=== PATIENT | male | born 1980 | race Caucasian/White ===

== ENCOUNTER 2016-10-09 10:35 | Observation (INO) | payer OTHER ==
[2016-10-09] MEDS ORDERED: NORMAL SALINE 1,000 ML IV PRN ×3 (10:49→15:30)
[2016-10-09] MEDS ORDERED: HYDROmorphone HCL 1 MG/ML DISP.SYRIN IV ONE ×2 (10:49→13:12)
[2016-10-09] MEDS ORDERED: TAMSULOSIN HCL 0.4 MG CAP.SR.24H PO ONE ×2 (10:49→11:17)
--- NOTE | 2016-10-09 10:55 | ERNOTE ---
ER Male HPI Date of Service: 10/09/16 Stated Complaint: KIDNEY STONES Time Seen by Provider: 10/09/16 10:45 Source: patient, family Exam Limitations: no limitations Immunizations: IMMUNIZATION HX Immunizations Up to Date Yes Allergies/Adverse Reactions: Allergies No Known Allergies Allergy (Unverified 10/09/16 10:48) Home Medications: HOME MEDICATIONS NK [No Home Medication] 10/09/16 [Last Taken Unknown] - History of Present Illness Narrative: Was wakened at 0400 today with RLQ pain radiating to right flank and right testicle. Severe. Aching, stabbing. Urgency of urination, but unable to void. No fever. Several years ago passed a kidney stone after an ER visit for same. Last year, passed two stones without visiting a health care provider. Father has kidney stones. Timing: Present: constant Quality: Present: severe, aching, stabbing Onset Location: Present: RLQ Radiation: Present: right flank Activities at Onset: Present: sleep Prior Abdominal Problems: Present: similar symptoms Modifying Factors - (Improves): Present: other - nothing Modifying Factors - (Worsens): Present: other - nothing Associated Symptoms: Absent: fever/chills, diaphoresis, nausea, vomiting Prior Treatment: Absent: currently on antibiotics Review of Systems - Review of Systems Constitutional: Present: no symptoms reported EYE: Present: no symptoms reported ENT: Present: no symptoms reported Respiratory: Present: no symptoms reported Cardiology: Present: no symptoms reported Gastrointestinal/Abdominal: Present: See HPI Genitourinary: Present: See HPI Musculoskeletal: Present: no symptoms reported Skin: Present: no symptoms reported Neurological: Present: no symptoms reported Endocrine: Present: no symptoms reported Hematologic/Lymphatic: Present: no symptoms reported Psych: Present: no symptoms reported All Other Systems: All systems neg except as marked - Patient's Past Medical History Patient History - Medical: Kidney stone Patient History - Cardiac/Respiratory: No pertinent hx Patient History - Cancer: No Hx of Cancer Patient History - Surgical Procedures: No surgical history - Social History Smoking Status: Never smoker - Immunizations Immunizations Up to Date: Yes Physical Exam - Physical Exam General Appearance: Present: wd/wn, alert, moderate distress Eye Exam: Normal inspection: bilateral, PERRL: bilateral, EOMI: bilateral Ears, Nose, Throat: Present: normal ENT inspection Neck: Present: normal inspection Respiratory: Present: no respiratory distress, lungs clear Cardiovascular/Chest: Present: regular rate, rhythm, no murmur Gastrointestinal/Abdominal: Present: normal bowel sounds, nondistended, soft, no organomegaly, tenderness - RLQ Back Exam: Present: normal inspection, CVA tenderness (R) Extremity Exam: Present: normal inspection, no edema Neurological Exam: Present: alert, oriented, no motor/sensory deficits Skin Exam: Present: normal color, warm/dry ED Progress - Results and Orders Patient's Lab Results:: I have reviewed the patient's lab results. - Vital Signs Patient's Vital Signs:: I have reviewed the patient's vital signs. Vital Signs: Vital Signs 10/09/16 10:45 Temperature 37.1 C Pulse Rate 66 Respiratory 12 Rate Blood Pressure 152/75 O2 Sat by Pulse 99 Oximetry - EKG EKG read: Interp. by me - junctional bradycardia, PACs, intraventricular conduction delay - CT/Ultrasound CT/Ultrasound Narrative: I have reviewed the CT scan report. There is a 5.5 mm stone at the right UVJ. There are two tiny pulmonary nodules incidentally noted on CT, which will eventually require CT followup. - Progress/Reassessment Chief Complaint: Abdominal Pain Progress Note-Subjective: 10/09/16 12:47 Noted to have junctional bradycardia on EKG, done because bradycardia was noted on initial exam. In this setting, asymptomatic, from cardiac standpoint, no intervention is indicated. 10/09/16 13:[address] Bazan by phone, the urologist who is on-call today in [place]. He said he would come down to see the patient this evening. I explained to him the patient has started a new job, and has no sick time available. I explained the plan to the patient and his significant other, and they agreed with the plan. 10/09/16 13:43 I spoke with Vero, our [employer] hospitalist, who agreed to accept him as a med surg observation bed admission. Departure Clinical Impression: Renal colic on right side - Departure Disposition: [facility]
--- OUTSIDE RECORDS SUMMARY | 2016-10-09 10:57 | XMS REPORT | Continuity of Care Document ---
:1980 Author Organization [email or web address] [place] [address] Care Team Providers Name Role Phone Unavailable Primary Care Provider Unavailable Source Comments This disclosure is being made pursuant to the [employer] program and maynot contain all information available regarding this patient.[email or web address] Active Allergies and Adverse Reactions Not on File Current Medications Be aware that medications may not be up to date as of this document. Alwaysverify current medications with the patient. Not on file Active Problems Not on file Social History Tobacco Use Types Packs/Day Years Used Date Former Smoker Last Filed Vital Signs Vital Sign Reading Time Taken Blood Pressure 134/98 03/12/2011 9:09 AM CDT Pulse 62 03/12/2011 9:03 AM CDT Temperature - - Respiratory Rate - - Height - - Weight - - Body Mass Index - - Oxygen Saturation - - Plan of Care Health Maintenance Due Date Last Done Comments Retired-Pertussis Vaccine Adult 2000 Retired-Tetanus Vaccine Adult 2000 Retired-INFLUENZA VACCINE 03/04/2015 Results from Last 3 Months Not on file
[2016-10-09 11:04] LABS: Hematocrit 46.1 % (42.0-52.0); Hemoglobin 15.6 gm/dL (13.5-18.0); Mean Cell Volume 88.1 fl (78-100); Mean Corpuscular Hemoglobin 29.8 pg (27-31); Mean Corpuscular Hgb Conc 33.8 g/dl (32-36); Neutrophil # 15.3 K/mm3 (1.3-6.0); Neutrophil % 91.7 % (42-75.0); Platelet Count 236 K/mm3 (150-450); Red Blood Count 5.23 M/mm3 (4.7-6.0); White Blood Count 16.7 K/mm3 (4.0-10.5)
[2016-10-09] MEDS ORDERED: HYDROmorphone HCL 1 MG/ML DISP.SYRIN ONE ×2 (11:17→13:21)
[2016-10-09 11:22] LABS: Albumin * 4.3 gm/dl (3.4-5.0); Anion Gap 12.5 mmol/L (6.8-13.8); BUN/Creatinine Ratio 7.5 (9.0-21.6); Bilirubin, Total 0.4 mg/dL (0.0-1.1); Ca. Corrected For Albumin 8.6 mg/dL (8.4-10.2); Calcium * 9.2 mg/dL (7.9-10.9); Carbon Dioxide 29.7 mmol/L (24-32.6); Potassium 4.2 mmol/L (3.4-4.6); Total Protein 8.1 gm/dL (6.2-8.2)
[2016-10-09 12:25] LABS: Urine Appearance Slightly Cloudy; Urine Bilirubin Negative (NEGATIVE); Urine Color Yellow
[2016-10-09 12:26] LABS: Urine Blood 250 /ul (NEGATIVE); Urine Ketone 5 mg/dL (NEGATIVE); Urine Nitrite Negative (NEGATIVE); Urine Protein 15 mg/dL (NEGATIVE); Urine Specific Gravity 1.025 SP.GR. (1.005-1.030); Urine Urobilinogen Normal (NORMAL); Urine WBC 0-5 /hpf (0-5); Urine pH 6.5 pH (5.0-7.0)
[2016-10-09 12:31] LABS: Urine Bacteria None Seen
--- OUTSIDE RECORDS SUMMARY | 2016-10-09 13:33 | XMS REPORT | Continuity of Care Document ---
:1980 Author Organization [facility] [place] [address] Care Team Providers Name Role Phone Unavailable Primary Care Provider Unavailable Source Comments This disclosure is being made pursuant to the [employer] program and maynot contain all information available regarding this patient.[facility] Active Allergies and Adverse Reactions Not on [...]
[2016-10-09] MEDS ORDERED: HYDROmorphone HCL 1 MG/ML DISP.SYRIN IV PRN (14:03)
[2016-10-09] MEDS ORDERED: ONDANSETRON HCL/PF 2 MG/ML VIAL IV PRN (14:03)
[2016-10-09] MEDS ORDERED: ENOXAPARIN SODIUM 40 MG/0.4 ML SYRG SC SCH (14:15)
[2016-10-09] MEDS ORDERED: RINGERS SOLUTION,LACTATED 1,000 ML IV PRN (14:46)
[2016-10-09] MEDS ORDERED: ONDANSETRON HCL/PF 2 MG/ML VIAL ONE (15:18)
--- NOTE | 2016-10-09 16:32 | HP ---
Addendum entered and electronically signed by Vero Spring ARNP 10/09/16 18: 14: addendum added to state that preop ekg read: sinus bradycardia with inverted p- waves in leads 2, 3 and aVF with occasional supraventricular premature complexes. jovon vo. Original Note: Chief Complaint - Chief Complaint Date of Service: 10/09/16 Time of Service: 16:05 Chief Complaint: renal colic History of Present Illness: Igor is a 35 year old male with a PMH of prior kidney stones presented to the ER this am with c/o right flank pain and right testicle pain. ER work up showed a 5.5 mm distal right ureteral stone at the level of the right UVJ with mild right hydroureter and moderate right hydronephrosis. Pt was given IV dilaudid in the ER for pain management, started on iv fluids and flomax and admitted to the floor after the ERP consulted with Dr. Bazan (urology) who recommend possible surgical intervention tonight. Patient denies any cp or dyspnea upon admission to the unit. c/o RUQ pain and right flank pain. - Patient's Past Medical History Patient History - Medical: Kidney stone Patient History - Cardiac/Respiratory: No pertinent hx Patient History - Cancer: No Hx of Cancer Patient History - Surgical Procedures: No surgical history - Social History Smoking Status: Never smoker - Immunizations Immunizations Up to Date: Yes Review Of Systems (GEN) - Review of Systems Generalized/Overall Review: Present: No Symptoms Reported EENTM: Present: No Symptoms Reported Respiratory: Present: No Symptoms Reported Cardiac: Present: No Symptoms Reported Abdominal: Present: Abdominal Pain Genitourinary: Present: No Symptoms Reported, Other - right flank pain Musculoskeletal: Present: No Symptoms Reported Neurological: Present: No Symptoms Reported Skin: Present: No Symptoms Reported Endocrine: Present: No Symptoms Reported Misc: All systems neg except as marked Immunizations: IMMUNIZATION HX Immunizations Up to Date Yes Allergies/Adverse Reactions: Allergies Allergy/AdvReac Type Severity Reaction Status Date / Time No Known Allergies Allergy Unverified 10/09/16 10:48 Home Medications: HOME MEDICATIONS NK [No Home Medication] 10/09/16 [Last Taken Unknown] Exam - Exam Vital Signs: Vital Signs - Last Taken Temp 98 C H 10/09/16 11:04 Pulse 55 L 10/09/16 15:15 Resp 12 10/09/16 15:15 BP 122/61 10/09/16 15:15 Pulse Ox 99 10/09/16 15:15 Constitutional: Present: Alert, Oriented x3, Cooperative, Mild distress ENT Exam: Present: hearing grossly normal Eye Exam: bilateral eye: normal inspection Neck: Present: full range of motion, supple Back Exam: Present: normal inspection, CVA tenderness (R) Breasts: Present: Exam deferred Respiratory: Present: chest non-tender, lungs clear, normal breath sounds, no respiratory distress Cardiovascular/Chest: Present: normal peripheral pulses, regular rate, rhythm, no chest tenderness, no edema, no JVD, no murmur Peripheral Pulses: dorsalis-pedis (R): 2+, dorsalis-pedis (L): 2+, radial (R): 2 +, radial (L): 2+ Abdomen: Present: Normal bowel sounds, soft, nondistended, no rebound tenderness , tender - RUQ /Rectal: Present: Exam deferred Extremity: Present: normal range of motion, non-tender, normal inspection, no pedal edema, no calf tenderness Skin Exam: Present: normal color, warm/dry, no cyanosis Neurologic: Present: alert, oriented x 3 Diagnostic Studies: Laboratory Results WBC 16.7 K/mm3 (4.0-10.5) H 10/09/16 10:55 RBC 5.23 M/mm3 (4.7-6.0) 10/09/16 10:55 Hgb 15.6 gm/dL (13.5-18.0) 10/09/16 10:55 Hct 46.1 % (42.0-52.0) 10/09/16 10:55 MCV 88.1 fl (78-100) 10/09/16 10:55 MCH 29.8 pg (27-31) 10/09/16 10:55 MCHC 33.8 g/dl (32-36) 10/09/16 10:55 RDW 12.0 % (11.5-14.0) 10/09/16 10:55 Plt Count 236 K/mm3 (150-450) 10/09/16 10:55 MPV 10.0 fl (6.0-9.5) H 10/09/16 10:55 Immature Gran % (Auto) 0.30 % (0.001-0.429) 10/09/16 10:55 Immature Gran # (Auto) 0.05 K/mm3 (0.000-0.0310) H 10/09/16 10:55 Neutrophils % 91.7 % (42-75.0) H 10/09/16 10:55 Lymphocytes % 4.6 % (20-51) L 10/09/16 10:55 Monocytes % 3.1 % (0.0-9) 10/09/16 10:55 Eosinophils % 0.1 % (0.0-3.0) 10/09/16 10:55 Basophils % 0.2 % (0.0-1.0) 10/09/16 10:55 Nucleated RBC % 0.0 k/mm3 (0-1) 10/09/16 10:55 Neutrophils # 15.3 K/mm3 (1.3-6.0) H 10/09/16 10:55 Lymphocytes # 0.8 k/mm3 (1.5-3.5) L 10/09/16 10:55 Monocytes # 0.5 k/mm3 (0.0-1.0) 10/09/16 10:55 Eosinophils # 0.0 k/mm3 (0.0-0.7) 10/09/16 10:55 Absolute Basophils 0.0 k/mm3 (0.0-0.1) 10/09/16 10:55 Sodium 141 mmol/L (132-142) 10/09/16 10:55 Plasma Sodium 142 mmol/L (130-142) 10/09/16 10:55 Potassium 4.2 mmol/L (3.4-4.6) 10/09/16 10:55 Chloride 103 mmol/L (97-106) 10/09/16 10:55 Carbon Dioxide 29.7 mmol/L (24-32.6) 10/09/16 10:55 Anion Gap 12.5 mmol/L (6.8-13.8) 10/09/16 10:55 BUN 11 mg/dL (6-23) 10/09/16 10:55 Creatinine 1.46 mg/dL (0.4-1.4) H 10/09/16 10:55 Est GFR (Non-Af Amer) 59 mL/min (60-130) L 10/09/16 10:55 BUN/Creatinine Ratio 7.5 (9.0-21.6) L 10/09/16 10:55 Random Glucose 133 mg/dL (70-110) H 10/09/16 10:55 Calcium 9.2 mg/dL (7.9-10.9) 10/09/16 10:55 Calcium Adj for Albumin 8.6 mg/dL (8.4-10.2) 10/09/16 10:55 Total Bilirubin 0.4 mg/dL (0.0-1.1) 10/09/16 10:55 AST 26 U/L (0-48) 10/09/16 10:55 ALT 43 U/L (19-67) 10/09/16 10:55 Alkaline Phosphatase 65 U/L (50-170) 10/09/16 10:55 Total Protein 8.1 gm/dL (6.2-8.2) 10/09/16 10:55 Albumin 4.3 gm/dl (3.4-5.0) 10/09/16 10:55 Urine Color Yellow 10/09/16 12:00 Urine Appearance Slightly cloudy 10/09/16 12:00 Urine pH 6.5 pH (5.0-7.0) 10/09/16 12:00 Ur Specific Holcomb 1.025 SP.GR. (1.005-1.030) 10/09/16 12:00 Urine Protein 15 mg/dL (NEGATIVE) H 10/09/16 12:00 Urine Glucose (UA) Negative mg/dL (NEGATIVE) 10/09/16 12:00 Urine Ketones 5 mg/dL (NEGATIVE) 10/09/16 12:00 Urine Blood 250 /ul (NEGATIVE) H 10/09/16 12:00 Urine Nitrate Negative (NEGATIVE) 10/09/16 12:00 Urine Bilirubin Negative mg/dl (NEGATIVE) 10/09/16 12:00 Prot Sulfosalicylic Acd 1+ mg/dL (0) 10/09/16 12:00 Urine Urobilinogen Normal EU/dl (NORMAL) 10/09/16 12:00 Ur Leukocyte Esterase Negative /ul (NEGATIVE) 10/09/16 12:00 Urine RBC 10-25 /hpf (0-5) H 10/09/16 12:00 Urine WBC 0-5 /hpf (0-5) 10/09/16 12:00 Ur Epithelial Cells 0-5 /hpf (0-5) 10/09/16 12:00 Urine Bacteria None seen (NONE) 10/09/16 12:00 Urine Culture Comments No culture indicated 10/09/16 12:00 Assessment/Plan - Narrative Narrative: Keaton is a 35 year old male with a history of prior kidney stones that in the past have passed on their own. Patient currently presents with 5.5 mm right kidney stone with moderate right hydronephrosis and mild hydroureter. urology has been consulted and is planning on taking the patient to surgery tonight. start iv rocephin 1 gm prior to surgery. ns iv for iv hydration. dilaudid as needed for pain. keep patient npo. will continue to follow patient patient post op and assist with medical management. appreciate urology assistance. - Assessment/Plan (1) Hydronephrosis, right Problem: Acute (2) Hydroureter, right Problem: Acute (3) History of kidney stones Problem: Chronic (4) Renal colic on right side Problem: Acute
[2016-10-09] MEDS ORDERED: RINGERS SOLUTION,LACTATED 1,000 ML IV ONE ×2 (17:00→17:30)
--- NOTE | 2016-10-09 20:25 | DS ---
(1) Hydronephrosis, right Problem: Acute (2) Renal colic on right side Problem: Acute (3) History of kidney stones Problem: Chronic Description of Stay: Mr. Pop is a 35 yr old WM pt with a known prior history of Kidney Stones. He presented to the ED on 10/09 with complains of RT flank pain and RT testicular pain. A CT of the abdomen obtained at the ED showed he had a 5.5 mm distal right ureteral stone at the level of the right UVJ with mild right hydroureter and moderate right hydronephrosis. Urology was consulted ( Dr. Bazan) and the plan was to admit pt for a surgical intervention. He had lithothripsy and RT ureteral stent placement to relieve the stone obstruction on the evening of 10/09 (Refer to his procedure notes). He remained under observation following the procedure. He had no nausea, and pain was controllable with PO medication. V.S remained stable. The pt will be discharged and will follow up with Dr. Bazan next week on Tuesday for Stent removal. Scripts for pain medication and antibiotics given to pt by Dr. Bazan. T Procedures Performed: see notes below - Lithotripsy, Rt Ureteral stent. Discharge Disposition: Home self care Disposition: Home self-care Condition: Good Discharge Activity: Activity as tolerated Discharge Diet: Other - Advance as tolerated Problem Oriented Discharge Instructions to Patient/Family: Lithotripsy, Care After, Ureteral Stent Implantation Additional Patient Instructions (free text): Follow-up with Dr. Bazan on 10/12/16 for stent removal. Complete Home Medications List: Complete Home Medication List: NK [No Home Medication] 10/09/16
[2016-10-09] MEDS ORDERED: TAMSULOSIN HCL 0.4 MG CAP.SR.24H PO SCH (21:00)
[2016-10-09] MEDS ORDERED: HYDROcodone/ACETAMINOPHEN 1 EACH TABLET PO PRN (22:00)
[2016-10-09] MEDS ORDERED: OXYBUTYNIN CHLORIDE 5 MG TABLET PO PRN (22:01)
[2016-10-09] MEDS ORDERED: CIPROFLOXACIN HCL 250 MG TABLET PO SCH (22:15)
[2016-10-10 00:57] VITALS: BP 110/45
== END 2016-10-09 22:40 | disposition home or self-care (01) ==
LOC: ER 10:35 → MS 13:28
PROVIDERS: ADMIT Nurse Practitioner Critical Care Medicine; ATTEND Internal Medicine
PROC: 0T768DZ Dilation of Right Ureter with Intraluminal Device, Via Natural or Artificial Opening Endoscopic (ICD-10-PCS; 2016-10-09)
PROC: 0TF68ZZ Fragmentation in Right Ureter, Via Natural or Artificial Opening Endoscopic (ICD-10-PCS; principal; 2016-10-09 17:00)
DX: N13.2 Hydronephrosis with renal and ureteral calculous obstruction (principal); R00.1 Bradycardia, unspecified; Z87.442 Personal history of urinary calculi
CPT/HCPCS: 36415; 52356; 74176; 74450; 76000; 80053; 81001; 85025; 87086; 93005; 96365; 96375; 99284; G0378